=== PATIENT | male | born 1955 | race Caucasian/White ===

== ENCOUNTER 2018-02-04 07:23 | Inpatient (IN) | payer BC, OTHER ==
--- NOTE | 2018-02-03 07:49 | ANES ---
Anesthesia Pre Procedure Eval HOME MEDICATIONS aspirin 81 mg tablet,delayed release 81 mg PO DAILY 01/19/18 [Last Taken Unknown ] inulin-sorbitol 2 gram chewable tablet See Label Instructions PO DAILY tab [Last Taken Unknown] omega-3 fatty acids 1,000 mg capsule 1,000 mg PO DAILY 01/19/18 [Last Taken Unknown] tramadol 50 mg tablet See Label Instructions PO Q6H PRN 01/19/18 [Last Taken Unknown] glucosamine-chondroitin 250 mg-200 mg tablet 2 tab PO .COMPLEX 01/25/18 [Last Taken Unknown] Allergies/Adverse Reactions: Allergies Allergy/AdvReac Type Severity Reaction Status Date / Time No Known Allergies Allergy Unverified 01/19/18 07:26 - Planned Procedure Planned Procedure: Arthroplasty Total Knee Right Medication List Reviewed:: Yes Allergies Verified: Yes Medical History (Last Reviewed 02/03/18 @ 07:48 by Vincent Loera CRNA) Kidney stone Onset Date: Unknown Lateral epicondylitis of left elbow Onset Date: Unknown Osteoarthritis of knees, bilateral Onset Date: Unknown Surgical History (Last Reviewed 02/03/18 @ 07:48 by Vincent Loera CRNA) H/O colonoscopy Onset Date: 02/16/16 H/O lithotripsy Onset Date: 2006 H/O: vasectomy Onset Date: 1999 History of appendectomy Onset Date: Unknown S/P right knee arthroscopy Onset Date: 2011 Family History (Last Reviewed 02/03/18 @ 07:48 by Vincent Loera CRNA) Father Cancer Mother Cancer Hypertension - Family Anesthesia History Family History:: no untoward family reactions to anesthesia - Airway/Neck/Teeth Teeth Condition: Intact - Respiratory Smoking Status: Former smoker Sleep Apnea currently treated: No Comments:: denies MARCO, snores - Cardiovascular Patient History - Cardiac/Respiratory: No pertinent hx Tolerates Activity: Fair - Anesthesia Assessment and Plan ASA Class: PS, II Anesthesia Type Plan: Spinal - rt adductor canal block for postop analgesia
[~2018-02-04 07:23] MED LIST: ROPIVACAINE HCL/PF 100 MG, EPINEPHrine 0.2 MG, KETOROLAC TROMETHAMINE 30 MG in NORMAL S... IJ PRN; ceFAZolin SODIUM 1 GM VIAL IV PRN
[2018-02-04] MEDS ORDERED: TRANEXAMIC ACID 1,000 MG in NORMAL SALINE 100 ML IV ONE (07:30)
[2018-02-04] MEDS ORDERED: TRANEXAMIC ACID 1,000 MG in NORMAL SALINE 100 ML IV PRN (07:30)
[2018-02-04] MEDS ORDERED: MORPHINE SULFATE 15 MG TABLET.SA PO SCH (08:30)
[2018-02-04] MEDS: RINGER'S SOLUTION,LACTATED 1,000 ML IV PRN ×4 (08:45→12:00)
[2018-02-04] MEDS ORDERED: ONDANSETRON HCL/PF 2 MG/ML VIAL IV PRN (12:01)
[2018-02-04] MEDS ORDERED: MORPHINE SULFATE 2 MG/ML DISP.SYRIN IV PRN (12:01)
[2018-02-04] MEDS ORDERED: MAG HYDROX/ALUMINUM HYD/SIMETH 30 ML UDC PO PRN (12:01)
[2018-02-04] MEDS ORDERED: MAGNESIUM HYDROXIDE 30 ML UDC PO PRN (12:01)
[2018-02-04] MEDS ORDERED: oxyCODONE HCL/ACETAMINOPHEN 1 TAB TABLET PO PRN (12:01)
[2018-02-04] MEDS ORDERED: diphenhydrAMINE HCL 50 MG/ML VIAL IV PRN (12:01)
[2018-02-04] MEDS ORDERED: NORMAL SALINE 1,000 ML IV PRN (12:01)
[2018-02-04] MEDS ORDERED: ACETAMINOPHEN 500 MG TABLET PO PRN (12:01)
--- NOTE | 2018-02-04 12:07 | ANES ---
Anesthesia Procedure Note Procedure Note: ANESTHESIA PROCEDURE NOTE Date of Procedure: 02/04/2018 Time of procedure: 9:05 AM. Performed by: KELLY Conner CRNA, MSN Manager Research: Oralia Duran RN. Preprocedure diagnosis: Post right total knee arthroplasty. Relief. Post procedure diagnosis: Same. Procedure: Right femoral nerve block. Indications: Post right total knee arthroplasty pain relief. Findings: See below. Details of the procedure: The patient was brought to OR #4 and placed in supine position. After difficult location of the adductor canal and patient unable to keep still, a spinal anesthesia was performed. The patient's right femoral area was prepped with chlorhexidine and using ultrasound guidance the right femoral artery and nerve was identified and lidocaine 1% was infiltrated to the skin of the intended injection site. Under ultrasound guidance the femoral nerve was approached with visualization of a 4 inch block needle, the femoral nerve was surrounded with 30 mL bupivacaine 0.5% with 1-200,000 epinephrine. Please see radiology/ultrasound report for details and retained images of the procedure. EBL: 0 Fluids: N/A. Specimen: N/A. Post procedure condition: The patient tolerated the procedure well. No complications were noted. Thank you for this consultation. Ramo Johnson CRNA, ARNP, MSN
--- NOTE | 2018-02-04 12:07 | ANES ---
Post Anesthesia Discharge - Transfer of Care Transfer of Care handoff given to nurse: Yes - Discharge from PACU Discharge from PACU when meets criteria: Yes - Alert and comfortable
--- NOTE | 2018-02-04 12:09 | OR ---
Operative Report - Dictated Report Narrative: Date: 02/04/2018 Preoperative diagnosis: Right knee degenerative joint disease. Postoperative diagnosis: Right knee degenerative joint disease. Procedure: Right total knee arthroplasty. Surgeon: Howard Feldman M.D. Pants Busheler: Chandrakant Ventura PA-C Anesthesia: Spinal with regional block and local periarticular joint injection. Complications: None Specimens: Bone for disposal. Estimated blood loss: Minimal. Tourniquet time: 79 Minutes at 300 millimeters of mercury. Retained implants: Depuy Attune size 8 standard lugged cemented posterior stabilized femoral component. Size 8 fixed-bearing cemented tibial platform. Size 8 by 8 millimeter posterior stabilized cross-linked tibial insert. 41 millimeter medialized patella button. Indications: Eder is a 62-year-old male who is active and otherwise healthy. This patient was followed in my clinic for period of time with significant complaints of right knee pain consistent with arthritic changes. They had failed conservative measures including but not limited to activity modification , passage of time, medications, and other conservative measures. Patient wished to proceed with surgical treatment. The risks, benefits, and alternatives were discussed in clinic. The risks of , blood clots, bleeding, infection, nerve/tendon blood vessel/ injury, malposition of components, intraoperative fracture, postoperative limited range of motion, persistent pain, failure of components, and need for additional procedures. Patient wished to proceed consent was obtained after answering all questions. Procedure: After marking the correct extremity on the floor, the patient was taken to the operating room. A timeout was performed. IV antibiotics consisting of 2 g of Ancef were administered prior to the procedure. A regional followed by spinal anesthetic was induced by anesthesia. on the operative table with all bony prominences well-padded. Nolan catheter was placed and a bump was placed under the operative side buttock. SCDs and SUNDAY hose were utilized on the nonoperative leg. A well-padded tourniquet was applied to the operative thigh. The operative leg was then pre-scrubbed with alcohol prepped and draped in a standard sterile fashion. After exsanguinating the extremity with an Esmarch bandage, the tourniquet was inflated. After marking out the anterior knee for standard incision centered over the patella, the skin was incised and dissected down to the joint retinaculum. The joint retinaculum was marked out as well as the horizontal axis of the patella, and a standard medial parapatellar arthrotomy was then made. The most proximal aspect of the quadriceps tendon and the patella tendon insertion were protected from release. A partial synovectomy was performed as well as a resection of the infrapatellar fat pad. The distal femoral fat pad proximal to the trochlea was also resected using cautery. The soft tissues were elevated off the medial aspect of the proximal tibia using a Dick elevator ensuring that we did not transect the medial collateral ligament. Upon initial evaluation range of motion was approximately 0 degrees to 135 degrees of flexion. There were signs of advanced arthrosis in the medial and lateral joint spaces. There were large marginal osteophytes which were removed with a rongeur. The knee was hyperflexed and the patella was tucked laterally. Protecting the surrounding soft tissues with Homans, an entry drill was placed down the femoral canal using Whitesides line for guidance into the entry point. The intramedullary femoral alignment perry was utilized in order to cut the distal femur in 5 of valgus resecting 10 millimeters of bone. Next the distal femur was sized to a size 8. An anterior referencing guide was utilized to place the distal femoral cutting block in 3 of external rotation. This was pinned into place. The rotation was confirmed both visually and based on anatomic landmarks. The 4 in 1 cutting jig of the appropriate size was utilized in order to make all bony cuts. Retractors were utilized in order to protect surrounding soft tissues. This cut did not result in any excessive notching. We then cut the box centered over the distal femur. This allowed for resection of the anterior and posterior cruciate ligaments. I then turned my attention to the preparation of the tibia. Using an extra medullary tibial alignment perry, 2 millimeters of bone was resected off the medial articular surface. This was made perpendicular to the mechanical axis of the joint with the alignment perry centered over the ankle mortise. The alignment perry was parallel to the mechanical axis, centered over the medial one third of the tibial tubercle, paralleling the anterior surface of the tibia. We then turned our attention to the remaining meniscus and soft tissues. These were removed while protecting the surrounding ligaments and soft tissues. The marginal osteophytes off the anterior, posterior, medial, lateral aspects of the femur and tibia were removed. The tibia was sized out to a size 8. Next the tibia was drilled and punched in an externally rotated position as confirmed with a drop perry. Next the trial femur and a series of tibial inserts were utilized in order to allow for full extension and maximal flexion. It was found that a 8 millimeter insert gave the best range of motion and stability at multiple flexion points as well as at full extension there was less than 2 mm of gapping both medially and laterally. There is minimal anterior translation with the knee at 90 of flexion and no signs of being able to dislocate the knee. The patella was then prepared. The initial thickness was 27 millimeters. This was reamed down to 17 millimeters parallel to the anterior surface of the patella. It was sized out to a size 41 mm medialized patella button. This was then drilled and trialed. Without any medial restraint the patella tracked appropriately and did not sublux or dislocate. At this point, it was felt these were the appropriate sized implants and all trials were removed. The standard periarticular joint injection consisting of ropivacaine, Toradol, and epinephrine were injected into the periarticular joint tissues. The bony surfaces were thoroughly irrigated with a pulsatile- suction saline irrigation device. A bone plug from the prior resected anterior chamfer cut was placed into the drill hole at the distal femur. The bony surfaces were then dried in preparation for placement of the implants. The cement was vacuum mixed per the radioisotope production operator's instructions. The cement was placed on the dry bony surfaces and posterior aspect of the implants. The implants were impacted into place, removing all extruded cement. At this point anesthesia administered tranexamic acid per protocol intravenously. The knee was placed in extension with axial loading with the trial insert while the cement cured. A dilute 0.35% betadyne-saline solution was used to irrigate the knee and allowed to sit in the knee while the cement cured. Once the cement cured, all remaining extruded cement was removed. The knee was placed through a range of motion with the trial insert to ensure appropriate range of motion and stability. Final range of motion was approximately 0 to 130 degrees. The knee was again thoroughly irrigated with pulsatile saline lavage. The final polyethylene insert was then impacted into place ensuring no retained soft tissues. The remaining periarticular joint injection was injected. The knee was then packed with lap sponges which were soaked with dilute betadyne solution and the tourniquet was let down. Pressure was held for approximately 2 minutes and then hemostasis was obtained using electrocautery to coagulate any bleeding vessels. The knee was then placed over a triangle and the arthrotomy was closed with interrupted #1 Vicryl after thoroughly irrigating the joint. The deep and subcutaneous tissues were closed with interrupted oh and 3-0 Vicryl respectively. Skin was closed with a running subcutaneous 3-0 Monocryl and bryon. Xeroform, 4 x 4's, ABD, Sof-Rol, and a full leg Johann wrap were applied. All sponge, needle, blade, and instrument counts were correct prior to closing the wounds. Postoperative condition: The patient was awoken and transferred to the postanesthesia care unit in stable condition. Plan is to be admitted to the inpatient medical/surgical floor postoperatively for 24 hours of IV antibiotics , physical therapy, occupational therapy, and medical co-management. Patient will be weightbearing as tolerated with range of motion as tolerated. DVT prophylaxis will be with SCDs, SUNDAY hose, and pharmacological anticoagulation. Anticipated hospital stay is approximately 2-4 days.
--- NOTE | 2018-02-04 12:30 | ANES ---
Post Anesthesia Assessment - Vital Signs Vitals: Last Vital Signs Temp 36.5 C 02/04/18 12:00 Pulse 68 02/04/18 12:25 Resp 18 02/04/18 12:25 BP 130/64 02/04/18 12:25 Pulse Ox 96 02/04/18 12:25 Airway Patency: Normal - Mental Status Level Of Consciousness: Awake, Alert, Appropriate - Pain Level Pain Score: 0 - N/V Assessment Nausea/Vomiting Presence: None Dehydration:: No
[2018-02-04] MEDS: ceFAZolin SODIUM 2 GM in DEXTROSE 5 % IN WATER 100 ML IV SCH ×4 (14:35→21:01)
[2018-02-04] MEDS: oxyCODONE HCL/ACETAMINOPHEN 1 TAB TABLET PO PRN ×2 (18:49→23:18)
[2018-02-04] MEDS: SENNOSIDES/DOCUSATE SODIUM 1 TAB TABLET PO SCH (21:00)
[2018-02-05] MEDS: oxyCODONE HCL/ACETAMINOPHEN 1 TAB TABLET PO PRN ×5 (04:03→21:12)
[2018-02-05] MEDS: ceFAZolin SODIUM 2 GM in DEXTROSE 5 % IN WATER 100 ML IV SCH ×2 (05:18)
[2018-02-05 05:19] LABS: Hematocrit 40.4 % (42.0-52.0); Hemoglobin 13.1 gm/dL (13.5-18.0); Mean Cell Volume 91.8 fl (78-100); Mean Corpuscular Hemoglobin 29.8 pg (27-31); Mean Corpuscular Hgb Conc 32.4 g/dl (32-36); Mean Platelet Volume 10.2 fl (8-11.3); Platelet Count 229 K/mm3 (150-450); Red Cell Distribution Width 13.6 % (11.5-14.0); White Blood Count 9.7 K/mm3 (4.0-10.5)
[2018-02-05 05:31] LABS: Carbon Dioxide 25.3 mmol/L (24-32.6); Estimated Creat Clear 100.2; Potassium 4.3 mmol/L (3.4-4.6)
--- NOTE | 2018-02-05 08:44 | PN ---
Subjective - Date and Time Seen Date: 02/05/18 Time: 08:41 Subjective Narrative: No events overnight. Pain well controlled. Making good gains with PT. Objective - Review of Systems Generalized/Overall Review: Reports: No Symptoms Reported - Vitals Vitals: Last Vital Signs Temp 37.0 C 02/05/18 07:34 Pulse 87 02/05/18 07:34 Resp 18 02/05/18 07:34 BP 117/62 02/05/18 07:34 Pulse Ox 96 02/05/18 07:34 - Abnormal Lab Findings Abnormal Lab Findings: Abnormal Lab Results 02/05/18 02/05/18 Range/Units 05:00 05:00 RBC 4.40 L (4.7-6.0) M/mm3 Hgb 13.1 L (13.5-18.0) gm/dL Hct 40.4 L (42.0-52.0) % Random Glucose 115 H (70-110) mg/dL - Exam Exam Narrative: Gen: A&Ox3, NAD Resp: breathing non-labored on room air MSK: RLE--> dressing c/d/i, SILT throughout, 10/31 EHL/FHL/DF/PF, cap refill brisk Cauti Physician Documentation - Urinary Catheter Management 2-way Urethral Date of Insertion: 02/04/18 Time of Insertion: 09:30 Date of Removal: 02/05/18 Time of Removal: 06:56 Assessment/Plan Plan Narrative: 62 yo M s/p R TKA, POD #1. -WBAT, ROM as tolerated -reg diet -oral pain meds -PT/OT -paul out -DVT ppx: lovenox, SCDs, teds -dispo: possible d/c home today pending PT - Problems/Diagnosis (1) Osteoarthritis of right knee Problem: Chronic Qualifiers:
[2018-02-05] MEDS: ENOXAPARIN SODIUM 40 MG/0.4 ML SYRG SC SCH (11:26)
[2018-02-05] MEDS: SENNOSIDES/DOCUSATE SODIUM 1 TAB TABLET PO SCH (20:13)
[2018-02-05 20:28] LABS: Prothrombin Time (Patient) 10.4 Seconds (9.0-11.0)
[2018-02-05 20:38] LABS: INR 1.04 INR (0.90-1.10)
[2018-02-06] MEDS: oxyCODONE HCL/ACETAMINOPHEN 1 TAB TABLET PO PRN ×3 (02:00→10:18)
[2018-02-06 05:28] LABS: Hemoglobin 12.3 gm/dL (13.5-18.0); Mean Cell Volume 89.4 fl (78-100); Mean Corpuscular Hemoglobin 29.7 pg (27-31); Mean Corpuscular Hgb Conc 33.2 g/dl (32-36); Mean Platelet Volume 9.3 fl (8-11.3); Platelet Count 245 K/mm3 (150-450); Red Blood Count 4.14 M/mm3 (4.7-6.0); Red Cell Distribution Width 13.6 % (11.5-14.0); White Blood Count 11.4 K/mm3 (4.0-10.5)
[2018-02-06 05:36] LABS: Anion Gap 8.7 mmol/L (6.8-13.8); BUN/Creatinine Ratio 14.3 (9.0-21.6); Calcium * 8.7 mg/dL (7.9-10.9); Carbon Dioxide 28.3 mmol/L (24-32.6); Estimated Creat Clear 93.6
--- NOTE | 2018-02-06 08:01 | PN ---
Subjective - Date and Time Seen Date: 02/06/18 Time: 07:59 Subjective Narrative: No events overnight. Pain controlled. Patient to work on stairs with PT this morning. Objective - Vitals Vitals: Last Vital Signs Temp 37.1 C 02/06/18 06:59 Pulse 100 02/06/18 06:59 Resp 16 02/06/18 06:59 BP 129/63 02/06/18 06:59 Pulse Ox 98 02/06/18 06:59 - Abnormal Lab Findings Abnormal Lab Findings: Abnormal Lab Results 02/06/18 02/06/18 Range/Units 05:25 05:25 WBC 11.4 H (4.0-10.5) K/mm3 RBC 4.14 L (4.7-6.0) M/mm3 Hgb 12.3 L (13.5-18.0) gm/dL Hct 37.0 L (42.0-52.0) % Random Glucose 116 H (70-110) mg/dL - Exam Exam Narrative: Gen: A&Ox3, NAD Resp: breathing non-labored on room air MSK: RLE--> Prineo dressing intact, no drainage, knee appropriately swollen, SILT, distal cap refill brisk Cauti Physician Documentation - Urinary Catheter Management 2-way Urethral Date of Insertion: 02/04/18 Time of Insertion: 09:30 Date of Removal: 02/05/18 Time of Removal: 06:56 Assessment/Plan Plan Narrative: 62 yo M s/p R TKA, POD #1. -WBAT, ROM as tolerated -reg diet -oral pain meds -PT/OT -DVT ppx: lovenox, SCDs, teds -dispo: d/c home today after PT - Problems/Diagnosis (1) Osteoarthritis of right knee Problem: Chronic Qualifiers: (2) S/P total knee arthroplasty Problem: Acute
--- NOTE | 2018-02-06 08:23 | DS ---
(1) Osteoarthritis of right knee Problem: Chronic Qualifiers: (2) S/P total knee arthroplasty Problem: Acute Description of Stay: Patient was taken to the OR on 02/04/18 for right total knee arthroplasty. He tolerated the procedure well and there were no complications. He was admitted to the inpatient floor postoperatively where he remained stable. Vital signs and labs were followed. Pain was controlled on oral meds. He resumed a normal diet, normal bladder and bowel function. He made appropriate gains with PT and was deemed stable for discharge home on 02/06/18. Procedures Performed: see notes below List Procedures: Right total knee arthroplasty - 02/06/18 Results and Findings: Lab Pending Results 02/04/18 06:00: PT 10.4, INR (Anticoag Therapy) 1.04 02/05/18 05:00: WBC 9.7, RBC 4.40 L, Hgb 13.1 L, Hct 40.4 L, MCV 91.8, MCH 29.8 , MCHC 32.4, RDW 13.6, Plt Count 229, MPV 10.2 02/05/18 05:00: Sodium 136, Plasma Sodium 136, Potassium 4.3, Chloride 103, Carbon Dioxide 25.3, Anion Gap 12.0, BUN 17, Creatinine 0.85, Est GFR (Non-Af Amer) 97, BUN/Creatinine Ratio 20.0, Random Glucose 115 H, Calcium 8.0 02/06/18 05:25: WBC 11.4 H, RBC 4.14 L, Hgb 12.3 L, Hct 37.0 L, MCV 89.4, MCH 29.7, MCHC 33.2, RDW 13.6, Plt Count 245, MPV 9.3 02/06/18 05:25: Sodium 138, Plasma Sodium 138, Potassium 4.0, Chloride 105, Carbon Dioxide 28.3, Anion Gap 8.7, BUN 13, Creatinine 0.91, Est GFR (Non-Af Amer) 90, BUN/Creatinine Ratio 14.3, Random Glucose 116 H, Calcium 8.7 Discharge Location: Home Disposition: Home self-care Condition: Good Discharge Activity: Activity as tolerated Discharge Diet: General/regular food Referrals: Howard Feldman MD [Primary Care Provider] - Additional Patient Instructions (free text): Orthopedic Discharge Instructions: 1. WBAT, ROM as tolerated. 2. Oral pain meds as needed. 3. Ice knee 4-6 times daily for 30 min at a time. 4. DVT prophylaxis: 10 total days of lovenox followed by 325 mg aspirin for 6 weeks. Con hose for 6 weeks. 5. Dressing: You have a waterproof dressing that you may shower with. It needs to be inspected daily to ensure that it is not peeling off and that there is no wound drainage. If either of these occurs, cover with dry gauze and tape and notify the Orthopedic Clinic. 6. May shower but do not soak knee in bathtub. 7. Follow up in 2 weeks in Orthopedic Clinic ([phone]). 8. Physical Therapy as outpatient at [facility] on ThursdayFebruary 08 at 10:30am. Please fax PT order to [phone]. Prescriptions (Any new or edited meds): Aspirin 325 mg PO DAILY #42 tab Enoxaparin Sodium [Lovenox] 40 mg SC DAILY #8 disp.syrin oxyCODONE HCL/ACETAMINOPHEN [Percocet 5 MG/325 MG] 1 - 2 tab PO Q4H PRN #90 tab PRN Reason: Pain Complete Home Medications List: Complete Home Medication List: inulin-sorbitol 2 gram chewable tablet See Label Instructions PO DAILY tab omega-3 fatty acids 1,000 mg capsule 2,000 mg PO DAILY 01/19/18 glucosamine-chondroitin 250 mg-200 mg tablet 2 tab PO .COMPLEX 01/25/18 Aspirin 325 mg PO DAILY #42 tab 02/06/18 Enoxaparin Sodium [Lovenox] 40 mg SC DAILY #8 disp.syrin 02/06/18 oxyCODONE HCL/ACETAMINOPHEN [Percocet 5 MG/325 MG] 1 - 2 tab PO Q4H PRN #90 tab 02/06/18 Amb Orders for Discharge: PT Evaluation and Treatment* Location: None Selected
[2018-02-06] MEDS: ENOXAPARIN SODIUM 40 MG/0.4 ML SYRG SC SCH (10:20)
[2018-02-06 10:38] VITALS: BP 165/74
== END 2018-02-06 10:42 | disposition home or self-care (01) | DRG 470 ==
LOC: SUR 07:23 → MS 09:59
PROVIDERS: ADMIT Orthopaedic Surgery; ATTEND Orthopaedic Surgery
CPT/HCPCS: 36415; 73560; 80048; 85027; 85610; 97110; 97116; 97161; 97166; 97530; A4210

== ENCOUNTER 2020-04-05 06:19 | Inpatient (IN) ==
[~2020-04-05 06:19] MED LIST changes: +MORPHINE SULFATE 15 MG TABLET.SA PO PRN; +TRANEXAMIC ACID 1,000 MG in NORMAL SALINE 100 ML IV PRN
[2020-04-05] MEDS ORDERED: BUPIVACAINE HCL/PF 10 ML VIAL ONE (07:04)
[2020-04-05] MEDS ORDERED: BUPIVACAINE HCL/EPINEPHRINE 50 ML VIAL IJ ONE (07:04)
[2020-04-05] MEDS ORDERED: LIDOCAINE HCL 20 ML VIAL ONE (07:04)
[2020-04-05] MEDS ORDERED: MIDAZOLAM HCL/PF 5 MG/ML VIAL ONE (07:04)
[2020-04-05] MEDS ORDERED: PROPOFOL VIAL IV ONE (07:05)
[2020-04-05] MEDS: RINGER'S SOLUTION,LACTATED 1,000 ML IV PRN ×3 (07:20→10:00)
--- NOTE | 2020-04-05 07:36 | ANES ---
Anesthesia Pre Procedure Eval Vitals/Labs: Last Vital Signs Temp 36.4 C 04/05/20 06:30 Pulse 71 04/05/20 06:30 Resp 16 04/05/20 06:30 BP 147/68 04/05/20 06:30 Pulse Ox 96 04/05/20 06:30 HOME MEDICATIONS aspirin 81 mg tablet,delayed release 81 mg PO DAILY 05/10/18 [Last Taken 03/14/20 06:00] nutritional supplement-fiber 1 ea PO DAILY 05/10/18 [Last Taken Unknown] omega 7-guf-stg-fish oil 1,000 mg (120 mg-180 mg) capsule 1 cap PO DAILY cap 05/10/18 [Last Taken Unknown] tramadol 50 mg tablet See Rx Instructions PO Q6H PRN #60 tab 02/06/20 [Last Taken Unknown] acetaminophen 500 mg tablet 1,500 mg PO .prn tab 02/29/20 [Last Taken Unknown] ibuprofen 200 mg tablet 600 mg PO .prn tab 02/29/20 [Last Taken Unknown] Allergies/Adverse Reactions: Allergies Allergy/AdvReac Type Severity Reaction Status Date / Time naproxen Allergy Intermediate Other Verified 04/05/20 06:53 povidone-iodine AdvReac Intermediate blisters Verified 02/29/20 08:44 [From Betadine] and redness soap [From Betadine] AdvReac Intermediate blisters Verified 02/29/20 08:44 and redness - Planned Procedure Planned Procedure: Left Total Knee Arthroplasty Medication List Reviewed:: Yes Allergies Verified: Yes Medical History (Last Reviewed 04/05/20 @ 07:35 by Vincent Loera CRNA) Bilateral knee pain History of tobacco abuse quit Kidney stone Onset Date: Unknown Lateral epicondylitis of left elbow Onset Date: Unknown Lives with spouse No illicit drug use Occasional alcohol consumption Osteoarthritis of knees, bilateral Onset Date: Unknown Surgical History (Last Reviewed 04/05/20 @ 07:35 by Vincent Loera CRNA) H/O colonoscopy Onset Date: 02/16/16 [place]- Dr Alves, multiple H/O lithotripsy Onset Date: 2006 bladder [facility] H/O: vasectomy Onset Date: 1999 History of appendectomy Onset Date: Unknown History of total right knee replacement Onset Date: 01/2018 S/P knee surgery Onset Date: 01/2018 I and D with poly exchange right knee S/P right knee arthroscopy Onset Date: 2011 Dr Oliva [facility] Family History (Last Reviewed 04/05/20 @ 07:35 by Vincent Loera CRNA) Father , 51 Cancer colon Mother Cancer breast/colon Hypertension CVA (cerebral vascular accident) Brother Alive and well Brother Diabetes Total knee replacement status Brother Total knee replacement status Son Alive and well Daughter Alive and well - Family Anesthesia History Family History:: no untoward family reactions to anesthesia - Airway/Neck/Teeth Within Normal Limits:: Yes Teeth Condition: intact Neck Exam: limited range of motion Mallampatti Score: 3 Thyromental (T-M) distance: > 6 cm Mandibulo Hyoid distance: > 3 cm - Respiratory Respiratory Physical: lungs clear Smoking Status: Former smoker Sleep Apnea currently treated: No Sleep Apnea by current assessment: No - Cardiovascular Tolerate Activity: Fair Heart Sounds: S1 & S2, Regular - Gastrointestinal NPO since: MN - Anesthesia Assessment and Plan ASA Class: PS, II Anesthesia Type Plan: Spinal - adductor canal block
--- NOTE | 2020-04-05 10:05 | OR ---
Operative Report - Dictated Report Narrative: Date: 04/05/2020 Preoperative diagnosis: Left knee degenerative joint disease. Postoperative diagnosis: Left knee degenerative joint disease. Procedure: Left total knee arthroplasty. Surgeon: Eugene Morin M.D. Area Attendant: Chandrakant Ventura PA-C (provided and essential set of skilled, educated hands that assisted with transfer, positioning, prepping, draping, manipulation, retraction, placement of jigs, injection, insertion of implants, irrigation, closure wounds, and dressings all of which could not be performed by the available surgical crew) Anesthesia: Spinal with regional block and local periarticular joint injection. Complications: None Specimens: Bone. Estimated blood loss: Minimal. Tourniquet time: 105 Minutes at 300 millimeters of mercury. Retained implants: Depuy Attune size 8 left lugged cemented posterior stabilized femoral component. Size 8 fixed-bearing cemented tibial platform. 8 by 6 millimeter posterior stabilized cross-linked tibial insert. 41 millimeter medialized patella button. Indications: Mr. Cho is a 64-year-old gentleman who has had longstanding left knee pain and arthrosis. This patient was followed in my clinic for period of time with significant complaints of left knee pain consistent with arthritic changes. He had failed conservative measures including, but not limited to, activity modification, passage of time, medications, and other conservative measures. Patient wished to proceed with surgical treatment. The risks, benefits, and alternatives were discussed in clinic. The risks of , blood clots, bleeding, infection, nerve/tendon blood vessel/ injury, malposition of components, intraoperative fracture, postoperative limited range of motion, persistent pain, failure of components, and need for additional procedures. Patient wished to proceed consent was obtained after answering all questions. Procedure: After marking the correct extremity on the floor, the patient was taken to the operating room. A timeout was performed. IV antibiotics consisting of Ancef were administered prior to the procedure. A regional followed by spinal anesthetic was induced by anesthesia, per my request, on the operative table with all bony prominences well-padded. Nolan catheter was placed, and a bump was placed under the operative side buttock. SCDs and SUNDAY hose were utilized on the nonoperative leg. A well-padded tourniquet was applied to the operative thigh. The operative leg was then pre-scrubbed with alcohol, prepped, and draped in a standard sterile fashion. After exsanguinating the extremity with an Esmarch bandage, the tourniquet was inflated. After marking out the anterior knee for standard incision centered over the patella, the skin was incised and dissected down to the joint retinaculum. The joint retinaculum was marked out as well as the horizontal axis of the patella, and a standard medial parapatellar arthrotomy was then made. The most proximal aspect of the quadriceps tendon and the patella tendon insertion were protected from release. A partial synovectomy was performed as well as a resection of the infrapatellar fat pad. The distal femoral fat pad proximal to the trochlea was also resected using cautery. The soft tissues were elevated off the medial aspect of the proximal tibia using a Dick elevator ensuring that we did not transect the medial collateral ligament. Upon initial evaluation range of motion was approximately 0 degrees to 130 degrees of flexion. There were signs of advanced arthrosis in the medial and patellofemoral joint spaces. There were large marginal osteophytes which were removed with a rongeur. The knee was hyperflexed and the patella was tucked laterally. Protecting the surrounding soft tissues with Homans, an entry drill was placed down the femoral canal using Whitesides line for guidance into the entry point. The in tramedullary femoral alignment perry was utilized in order to cut the distal femur in 5 degrees of valgus resecting 10 millimeters of bone. Next the distal femur was sized to a size 8. A posterior referencing guide was utilized to place the distal femoral cutting block in 3 degrees of external rotation. This was pinned into place. The rotation was confirmed both visually and based on anatomic la ndmarks. The 4 in 1 cutting jig of the appropriate size was utilized in order to make all bony cuts. The lola wing was used to ensure no notching. Retractors were utilized in order to protect surrounding soft tissues. This cut did not result in any excessive notching. We then cut the box centered over the distal femur. This allowed for resection of the anterior and posterior cruciate ligaments. I then turned my attention to the preparation of the tibia. Using an extra medullary tibial alignment perry, 3 millimeters of bone was resected off the medial articular surface. This was made perpendicular to the mechanical axis of the joint with the alignment perry centered over the ankle mortise. The alignment perry was checked and was noted to be parallel to the mechanical axis, centered over the medial one third of the tibial tubercle, paralleling the anterior surface of the tibia. We then turned our attention to the remaining meniscus and soft tissues. These were removed while protecting the surrounding ligaments and soft tissues. The marginal osteophytes off the anterior, posterior, medial, lateral aspects of the femur and tibia were removed. The tibia was sized out to a size 8. Next the tibia was drilled and punched in an externally rotated position. Next the trial femur and a series of tibial inserts were utilized in order to allow for full extension and maximal flexion. It was found that a 6 millimeter insert gave the best range of motion and stability at multiple flexion points as well as at full extension there was less than 2 mm of gapping both medially and laterally. There is minimal anterior translation with the knee at 90 degrees of flexion and no signs of being able to dislocate the knee. The patella was then prepared. The initial thickness was 28 millimeters. This was reamed down to 18 millimeters parallel to the anterior surface of the patella. It was sized out to a size 41 medialized patella button. This was then drilled and trialed. Without any medial restraint the patella tracked appropriately and did not sublux or dislocate. At this point, it was felt these were the appropriate sized implants, and all trials were removed. The standard periarticular joint injection consisting of ropivacaine, Toradol, and epinephrine were injected into the periarticular joint tissues. The bony surfaces were thoroughly irrigated with a pulsatile-suction saline irrigation device. A bone plug from the prior resected anterior chamfer cut was placed into the drill hole at the distal femur. The bony surfaces were then dried in preparation for placement of the implants. The cement was vacuum mixed per the homeopathic doctor's instructions. The cement was placed on the dry bony surfaces and posterior aspect of the implants. The implants were impacted into place, removing all extruded cement. At this point anesthesia administered tranexamic acid per protocol intravenously. The knee was placed in extension with axial loading with the trial insert while the cement cured. Once the cement cured, all remaining extruded cement was removed. The knee was placed through a range of motion with the trial insert to ensure appropriate range of motion and stability. Final range of motion was approximately 0 to 130 degrees. The knee was again thoroughly irrigated with pulsatile saline lavage. The final polyethylene insert was then impacted into place ensuring no retained soft tissues. The remaining periarticular joint injection was injected. A medium Hemovac drain was placed exiting superior laterally. The knee was then placed over a triangle and the arthrotomy was closed with interrupted #1 Vicryl after thoroughly irrigating the joint. The deep and subcutaneous tissues were closed with interrupted 0 and 3-0 Vicryl respectively. Skin was closed with a running subcutaneous 3-0 Monocryl and Prineo Dermabond dressing. 4 x 4's, Sof-Rol, and a full leg Johann wrap were applied. All sponge, needle, blade, and instrument counts were correct prior to closing the wounds. Postoperative condition: The patient was awoken and transferred to the postanesthesia care unit in stable condition. Plan is to be admitted to the inpatient medical/surgical floor postoperatively for 24 hours of IV antibiotics, physical therapy, occupational therapy, and medical comanagement. Patient will be weightbearing as tolerated with range of motion as tolerated. DVT prophylaxis will be with SCDs, SUNDAY hose, and pharmacological anticoagulation. Anticipated hospital stay is approximately 1-3 days.
[2020-04-05] MEDS ORDERED: diphenhydrAMINE HCL 50 MG/ML VIAL IV PRN (10:06)
[2020-04-05] MEDS ORDERED: ONDANSETRON HCL/PF 2 MG/ML VIAL IV PRN (10:06)
[2020-04-05] MEDS ORDERED: MAG HYDROX/ALUMINUM HYD/SIMETH 30 ML UDC PO PRN (10:06)
[2020-04-05] MEDS ORDERED: MORPHINE SULFATE 2 MG/ML DISP.SYRIN IV PRN (10:06)
[2020-04-05] MEDS ORDERED: MAGNESIUM HYDROXIDE 30 ML UDC PO PRN (10:06)
[2020-04-05] MEDS ORDERED: ZOLPIDEM TARTRATE 5 MG TABLET PO PRN (10:06)
[2020-04-05] MEDS ORDERED: ACETAMINOPHEN 500 MG TABLET PO PRN (10:06)
[2020-04-05] MEDS: KETOROLAC TROMETHAMINE 15 MG/ML VIAL IV SCH ×3 (11:18→22:12)
[2020-04-05] MEDS: ceFAZolin SODIUM 1 GM in DEXTROSE 5 % IN WATER 100 ML IV SCH ×4 (11:27→17:47)
[2020-04-05] MEDS: oxyCODONE HCL/ACETAMINOPHEN 1 TAB TABLET PO PRN ×2 (12:27→21:02)
--- NOTE | 2020-04-05 12:57 | ANES ---
Post Anesthesia Discharge - Transfer of Care Transfer of Care handoff given to nurse: Yes - Discharge from PACU Discharge from PACU when meets criteria: Yes
--- NOTE | 2020-04-05 12:58 | ANES ---
Post Anesthesia Assessment - Vital Signs Vitals: Last Vital Signs Temp 36.4 C 04/05/20 11:20 Pulse 105 H 04/05/20 11:20 Resp 20 04/05/20 11:20 BP 139/64 04/05/20 10:50 Pulse Ox 98 04/05/20 11:20 Airway Patency: Normal - Mental Status Level Of Consciousness: Awake - Pain Level Pain Score: 0 - N/V Assessment Nausea/Vomiting Presence: None Dehydration:: No
--- NOTE | 2020-04-05 14:44 | ANES ---
Anesthesia Procedure Note Procedure Note: ANESTHESIA PROCEDURE NOTE Date of procedure: 04/05/2020. Time of procedure: 40. Performed by: Christopher Loera CRNA Bridge Engineer: Lesli Duran RN . Preprocedure diagnosis: Left knee DJD. Post procedure diagnosis: Same. Procedure: Ultrasound-guided left adductor canal block Indications: Postoperative analgesia. Findings: Patient brought to operating room #4 and given a spinal anesthetic. Patient's left inner thigh was prepped with ChloraPrep. Ultrasound utilized to identify the saphenous nerve in the left adductor canal. A 20-gauge 4 inch renal block needle was advanced under ultrasound guidance until tip of needle was placed just proximal to saphenous nerve. 30 mL of 0.25% Marcaine with epinephrine 1-200,000 was injected with adequate spread of local anesthesia noted a around the nerve. Regional block needle was removed intact. EBL: Minimal. Fluids: N/A. Specimen: N/A. Post procedure condition: The patient tolerated the procedure well. No complications were noted. Thank you for this consultation Christopher Loera CRNA
[2020-04-05] MEDS: DEXTROSE 5%-LACTATED RINGERS 1,000 ML IV PRN (16:16)
[2020-04-05] MEDS ORDERED: SENNOSIDES/DOCUSATE SODIUM 1 TAB TABLET PO SCH (21:00)
[2020-04-05] MEDS: MORPHINE SULFATE 15 MG TABLET.SA PO SCH (21:02)
[2020-04-06] MEDS: ceFAZolin SODIUM 1 GM in DEXTROSE 5 % IN WATER 100 ML IV SCH ×2 (00:09)
[2020-04-06] MEDS: DEXTROSE 5%-LACTATED RINGERS 1,000 ML IV PRN (01:21)
[2020-04-06] MEDS: KETOROLAC TROMETHAMINE 15 MG/ML VIAL IV SCH ×2 (04:43→10:12)
[2020-04-06] MEDS: oxyCODONE HCL/ACETAMINOPHEN 1 TAB TABLET PO PRN ×2 (04:48→14:05)
[2020-04-06 06:45] LABS: Hematocrit 35.6 % (42.0-52.0); Hemoglobin 11.5 gm/dL (13.5-18.0); Mean Cell Volume 92.2 fl (78-100); Mean Corpuscular Hemoglobin 29.8 pg (27-31); Mean Corpuscular Hgb Conc 32.3 g/dl (32-36); Mean Platelet Volume 9.2 fl (8-11.3); Platelet Count 258 K/mm3 (150-450); Red Blood Count 3.86 M/mm3 (4.7-6.0); Red Cell Distribution Width 13.2 % (11.5-14.0); White Blood Count 7.1 K/mm3 (4.0-10.5)
[2020-04-06 06:56] LABS: Anion Gap 10.2 mmol/L (6.8-13.8); BUN/Creatinine Ratio 14.3 (9.0-21.6); Calcium * 8.4 mg/dL (7.9-10.9); Carbon Dioxide 25.7 mmol/L (24-32.6); Estimated Creat Clear 83.8; Potassium 3.9 mmol/L (3.4-4.6)
[2020-04-06] MEDS ORDERED: OMEGA-3 FATTY ACIDS 1 CAP CAPSULE PO SCH (09:00)
[2020-04-06] MEDS ORDERED: ENOXAPARIN SODIUM 40 MG/0.4 ML SYRG SC SCH (09:06)
[2020-04-06] MEDS: MORPHINE SULFATE 15 MG TABLET.SA PO SCH (09:12)
--- NOTE | 2020-04-06 12:55 | DS ---
(1) S/P total knee arthroplasty Problem: Acute Qualifiers: Laterality: left Qualified Code(s): Z96.652 - Presence of left artificial knee joint Date of Discharge:: 04/06/20 Hospital Course: Mr. Cho was admitted to the floor after undergoing left total knee arthroplasty. Tolerated this well. Was admitted to the floor postoperatively for 24 hours of IV antibiotics, pain control, medical comanagement, and occupational and physical therapy. OT and PT were consulted to assist with activities of daily living and ambulation. Was made weightbearing as tolerated with range of motion as tolerated. Pain was initially controlled with IV regimen. This was transitioned to oral once tolerating a by mouth intake. Was resumed on home diet and medications. A Nolan catheter was inserted in the operating room which was discontinued by postoperative day 1. A drain was placed intraoperatively into the knee which was discontinued on postoperative day 1. Lovenox, SCDs, and SUNDAY hose were utilized for DVT prophylaxis. Vital signs remained stable to the hospital course. Labs were obtained which showed a final hemoglobin of 11.5 grams. BMP was reviewed and was stable. Physical examination throughout the hospital course showed an extremity that had sensation that was intact to light touch, palpable pulses, a benign wound, motor intact to the toes, ankle, and knee. Knee range of motion was approximately 5 degrees to 60 degrees. Once an oral pain regimen was tolerated and physical therapy goals were met, it was felt that they were stable for discharge to home. Instructions: Continue with weightbearing as tolerated and range of motion as tolerated. It is okay to shower and get the wound wet as long as there is no drainage from the wound. Do not bathe or soak the wound. If there is any drainage from the wound keep the wound clean and dry and cover with dry gauze and tape. Change every 2- 3 days as needed if there is any drainage. Cover wound while showering if there is any drainage. Continue with physical therapy. Resume home diet. Report any fever over 101.5 Fahrenheit, uncontrolled pain, increased drainage, foul odor of drainage, new or increased calf pain or shortness of breath, or any other significant complaints. A 325mg daily aspirin will be started after finishing anticoagulation if not allergic. Continue with SUNDAY hose on the operative extremity until instructed otherwise. No driving until instructed otherwise. Follow up in approximately 2-3 weeks. Procedures Performed: see notes below List Procedures: Left total knee arthroplasty Results and Findings: Lab Pending Results 04/06/20 06:41: WBC 7.1, RBC 3.86 L, Hgb 11.5 L, Hct 35.6 L, MCV 92.2, MCH 29.8, MCHC 32.3, RDW 13.2, Plt Count 258, MPV 9.2 04/06/20 06:41: Sodium 139, Plasma Sodium 139, Potassium 3.9, Chloride 107 H, Carbon Dioxide 25.7, Anion Gap 10.2, BUN 14, Creatinine 0.98, Est GFR (Non-Af A iron) 82, BUN/Creatinine Ratio 14.3, Random Glucose 121 H, Calcium 8.4 Discharge Location: Home Disposition: Home self-care Condition: Good Discharge Activity: Activity as tolerated, Weight bearing Discharge Diet: General/regular food Additional Patient Instructions (free text): Physical Therapy at [facility] on ThursdayApril 09 at 9:20am for paper work and 9:40am for the appointment. Please fax demographics and PT order to #[phone]. [facility] is moving to a new location at [address] [place] [address] in [place]. Phone number is [phone]. Follow up [facility] Orthopedic Dr. Morin's office appointment on April 25 at 9:00am. Prescriptions (Any new or edited meds): Enoxaparin Sodium [Lovenox] 40 mg SC Q24H #7 disp.syrin Transmission Status: Sent to [place], [place] Morphine Sulfate [Ms Contin] 15 mg PO Q12H #10 tablet.sa Transmission Status: Received by [place], [place] oxyCODONE HCL/ACETAMINOPHEN [Percocet 5 MG/325 MG] 1 - 2 tab PO Q4H PRN #50 tab PRN Reason: Moderate Pain (Pain Scale 4-6) Transmission Status: Received by [place], [place] Sennosides/Docusate Sodium [Senokot-S] 2 tab PO HS #60 tab Transmission Status: Pending to [place], [place] Complete Home Medications List: Complete Home Medication List: aspirin 81 mg tablet,delayed release 81 mg PO DAILY 05/10/18 nutritional supplement-fiber 1 ea PO DAILY 05/10/18 omega 3-aro-hee-fish oil 1,000 mg (120 mg-180 mg) capsule 1 cap PO DAILY cap 05/10/18 ibuprofen 200 mg tablet 600 mg PO .prn tab 02/29/20 Enoxaparin Sodium [Lovenox] 40 mg SC Q24H #7 disp.syrin 04/06/20 Morphine Sulfate [Ms Contin] 15 mg PO Q12H #10 tablet.sa 04/06/20 Sennosides/Docusate Sodium [Senokot-S] 2 tab PO HS #60 tab 04/06/20 oxyCODONE HCL/ACETAMINOPHEN [Percocet 5 MG/325 MG] 1 - 2 tab PO Q4H PRN #50 tab 04/06/20 Amb Orders for Discharge: PT Evaluation and Treatment* Facility: [facility], Location: Rehabilitation Services
[2020-04-06 14:13] VITALS: BP 140/69
== END 2020-04-06 14:18 | disposition home or self-care (01) | DRG 470 ==
LOC: MS 06:19 → EDSTATUS 08:00
PROVIDERS: ADMIT Orthopaedic Surgery; ATTEND Orthopaedic Surgery